=== PATIENT | female | born 1935 | race Caucasian/White ===

== ENCOUNTER 2018-12-22 11:22 | Emergency (ER) | payer OTHER ==
[~2018-12-22] VITALS: Ht 160 cm; Wt 81.6 kg
[2018-12-22 11:28] VITALS: BP_SYST 153
--- NOTE | 2018-12-22 11:34 | NUR ---
Patient to ER bed 8 to gown for evaluation. Side rails up. Report given to Giuliana ZARATE.
--- NOTE | 2018-12-22 11:40 | NUR ---
PATIENT CAME IN COMPLAINING OF PAIN IN UPPER RIGHT SIDE OF BACK SINCE 4 DAYS AGO AND STARTED RADIATING LAST NIGHT TO RIGHT UPPER CHEST. PATIENT COMPLAINING OF 7/10 ACHING PAIN. PATIENT HAS SOME SOB BECAUSE OF PAIN. PATIENT TENDER TO TOUGH. PATIENT TOOK TYLENOL AND SAID IT HELPS BUT PAIN COMES BACK. PATIENT STATES SHE USED HEATING PAD AND DIDNT HELP. PATIENT DENIES COUGH, NAUSEA, VOMITING AND TRAMA TO AREA. PATIENT IS ALERT AND ORIENTED X4. FAMILY AT BEDSIDE.
--- NOTE | 2018-12-22 11:41 | NUR ---
ER Dr. FRENCH at bedside examining patient.
[2018-12-22] MEDS: traMADol HCL HCL 50 MG TABLET (ULTRAM) PO ONE (11:54)
--- NOTE | 2018-12-22 11:56 | NUR ---
PATIENT GETTING X RAY IN BED.
[2018-12-22 12:24] VITALS: BP_SYST 153
--- NOTE | 2018-12-22 12:25 | NUR ---
Patient given written and verbal discharge instructions and verbalizes understanding. ER MD discussed with patient the results and treatment provided. Patient in stable condition. ID arm band removed. Rx of tramadol, naproxen given. Patient educated on pain management and to follow up with PMD. Pain Scale 0/10. Opportunity for questions provided and answered. Medication side effect fact sheet provided.
== END 2018-12-22 12:24 | disposition home or self-care (01) ==
LOC: SED 11:22
DX: S29.012A Strain of muscle and tendon of back wall of thorax, initial encounter (principal); X58.XXXA Exposure to other specified factors, initial encounter; Y93.89 Activity, other specified; Y92.89 Other specified places as the place of occurrence of the external cause; Y99.8 Other external cause status
CPT/HCPCS: 71045; 99283